=== PATIENT | male | born 1965 | race Caucasian/White ===

== ENCOUNTER 2020-12-08 09:45 | Outpatient (CLI) | payer MEDICAID | END 2020-12-08 09:46 | disposition home or self-care (01) | LOC: CSHRAD 09:45 | PROVIDERS: ATTEND Orthopaedic Surgery | DX: M54.5 Low back pain (principal); M47.816 Spondylosis without myelopathy or radiculopathy, lumbar region | CPT/HCPCS: 72100 ==